=== PATIENT | male | born 1995 | race Caucasian/White ===

== ENCOUNTER 2019-06-09 11:10 | Outpatient (CLI) | payer SELFPAY ==
--- NOTE | 2019-06-09 12:09 | ECG_ITS ---
NAME OF STUDY: TREADMILL STRESS TEST INDICATION: Chest Pain Baseline blood pressure of 129/62 mm Hg, heart rate 73 beats per minute. EKG showed normal sinus rhythm, right axis deviation. Right ventricular conduction delay. The patient exercised for 11 minutes on a standard Anderson protocol. Patient attained a maximum heart rate of 180 beats per minute(90 % of the maximum predicted heart rate) with a blood pressure at the peak exercise of 181/53 mm Hg and. The EKG at the peak exercise revealed sinus tachycardia with no significant ST-T wave changes. Patient did not have any chest pain or any significant arrhythmias with the exercise During the recovery phase, there were no new changes. Blood pressure at the end of the recovery phase was 131/57 mm Hg with a heart rate of 108 beats per minute. CONCLUSION: 1. Normal EKG response to treadmill exercise. 2. No exercise-induced chest pain or cardiac arrhythmia. 3. Good exercise tolerance, attained a maximum of 13.5 METs. Maximum VO2 of 47.3 ml/kg/min. Hester treadmill score of 6, suggestive of low risk. 4. Baseline normal blood pressure with normal response to exercise. Electronically Signed On 06-09-2019 16:51:04 CONSTRUCTION IRONWORKER HELPER by Romina Velasquez M.D. [email or web address]
[2019-06-09 12:23] VITALS: BMI 21.1
[2019-06-09 12:42] VITALS: BP 131/57; PULSE 104
== END 2019-06-09 11:11 | disposition home or self-care (01) ==
LOC: CDL 11:13
PROVIDERS: Visit Provider Nurse Practitioner Family
DX: R07.9 Chest pain, unspecified (principal)
CPT/HCPCS: 93017

== ENCOUNTER 2019-09-28 16:04 | Emergency (ER) | payer SELFPAY ==
[2019-09-28 16:16] VITALS: BP 124/66; PULSE 81; RESP 16; TEMP 36.8; O2SAT 98; BMI 20.3
--- NOTE | 2019-09-28 16:25 | ED_ITS ---
HPI - Wound/Laceration General: Chief Complaint: Wound/Laceration Stated Complaint: left foot lac Time Seen by Provider: 09/28/19 16:21 Source: patient Mode of arrival: ambulatory Limitations: no limitations History of Present Illness: HPI narrative: Patient comes in for injury to the left foot. Patient reports yesterday he was outside walking in the park and slipped cutting his outer sole of his left foot. Patient reports has been ambulating well without any difficulty but it does seem to be sore and he is noticed that he is gaping a little bit. It is been greater than 24 hours since patient's injury. Patient states that his tetanus is up-to-date. Patient reports allergies to amoxicillin and cephalosporins. Review of Systems General: Reports: 10 or more systems reviewed and unremarkable except in HPI and below Skin/Breast: Reports: other (Laceration left foot) PFS ED PFSH: Surgical History H/O oral surgery History of appendectomy Hx of tonsillectomy Social History Smoking and tobacco status: current some day smoker Alcohol intake: current Physical Exam Const: COMMON NORMALS: no acute distress and patient oriented x3 GENERAL APPEARANCE: cooperative HENMT: COMMON NORMALS: normocephalic and Normal external nose present HEAD & SCALP: normal to inspection and normocephalic NOSE: Normal external nose present MOUTH: Normal oral and palatal mucosa present THROAT: posterior oropharynx normal Eye: GENERAL EYE: appearance normal, both eyes and all related structures Neck/C-Spine: COMMON NORMALS: full ROM Chest: COMMONS NORMALS: normal inspection of the chest Resp: COMMON NORMALS: normal respiratory effort EFFORT & INSPECTION: Yes able to speak in complete sentences Cardio: COMMON NORMALS: regular rate and regular rhythm RATE: regular rate RHYTHM: regular rhythm GI: COMMON NORMALS: non-tender Back/Pelvis: COMMON NORMALS: thoracic and lumbar spine normal to inspection Extremity: COMMON NORMALS: normal to inspection Neuro: COMMON NORMALS: patient oriented x3 and moves all extremities Psych: COMMON NORMALS: mental status grossly normal and cooperative Skin: NARRATIVE SKIN EXAM: 3 cm lacerations noted to the sole of the left foot on the outer aspect midfoot. No significant redness or drainage is noted from the wound. No bleeding is noted. Course Vital Signs: Vital signs: Vital Signs Temperature 98.3 F 09/28/19 16:16 Pulse Rate 81 09/28/19 16:16 Respiratory Rate 16 09/28/19 16:16 Blood Pressure 124/66 09/28/19 16:16 Pulse Oximetry 98 09/28/19 16:16 MDM - Wound/Laceration MDM Narrative: Medical decision making narrative: Patient comes in for evaluation of wound to the left foot. On evaluation we note a 3 cm laceration without any sign of foreign body or infection. Vital signs are normal. Differential diagnosis includes laceration, wound infection, foreign body. Reviewed exam with patient not recommending closure of the wound due to the length of time since the injury greater than 24 hours. Patient reports understanding and agrees to plan. Wound was cleaned with Betadine and then dressed with a Telfa pad. Patient will be placed on antibiotic and recommended to monitor for worsening signs and symptoms. Patient's tetanus was already up-to-date. Discharge Plan Discharge Patient Disposition: Home, Self-Care Clinical Impression: Laceration Condition: Stable Prescriptions: New Bactrim DS 800-160 mg tablet 1 tab PO BID 10 Days Qty: 20 RF: 0 Discharge Orders: Discharge Order (Routine); Ordered 09/28/19 Ordered By: Slim Whittaker Discharge Diet: Usual diet Discharge Activity: Increase activity as tolerated Patient Instructions: Laceration (ED) Activity Restrictions/Additional Instructions: Keep wound clean and dry as well as possible. Change dressing daily. Take antibiotics as directed. Monitor wound for worsening symptoms such as swelling or fever. Return to the ER if you notice worsening symptoms or new concerns. Follow-up with primary care in 1 week. Coding Level of Care Code ED Calibration Engineer for Emerson Garsia Exam Comprehensive
[2019-09-28 17:09] VITALS: BP 112/74; PULSE 72; RESP 17; O2SAT 98
== END 2019-09-28 17:11 | disposition home or self-care (01) ==
PROVIDERS: Emergency Provider Nurse Practitioner Family
DX: S91.312A Laceration without foreign body, left foot, initial encounter (principal); W01.0XXA Fall on same level from slipping, tripping and stumbling without subsequent striking against object, initial encounter; F17.210 Nicotine dependence, cigarettes, uncomplicated
CPT/HCPCS: 12345; 99281; 99282

== ENCOUNTER 2019-12-04 00:43 | Emergency (ER) | payer SELFPAY ==
--- NOTE | 2019-12-04 00:47 | ECG_ITS ---
[facility] Test Date: 2019-12-04 Pat Name: Joseph Hood Department: Room: Gender: Male Bowl Sander: : 1995 Requested By: Jesus Ivory Order Number: [id number] Chani MD: Romina Velasquez M.D. Measurements Intervals [place] Rate: 59 P: 5 HI: 129 QRS: 102 QRSD: 96 T: 58 QT: 386 QTc: 383 Interpretive Statements SINUS BRADYCARDIA RIGHT AXIS DEVIATION [QRS AXIS > 100] Compared to ECG 04/06/2017 09:11:05 Sinus rhythm no longer present Sinus arrhythmia no longer present Electronically Signed On 12-04-2019 11:33:07 CDT by Romina Velasquez M.D. [id number]
--- NOTE | 2019-12-04 00:47 | XR_ITS ---
WS: [id number] Chest 2 views, 12/04/2019 Clinical Data: cp Comparison: PA and lateral chest, 09/12/2017. Findings: No nodules, masses or effusions are seen. The heart is normal. The pulmonary vascularity is not increased. No pneumonia or pneumothorax is seen. There is a minimal levoscoliosis of the lower t horacic spine. XR/XR chest 2V* [id number] Impression: Negative chest.
[2019-12-04 00:48] VITALS: BP 102/69; PULSE 68; RESP 17; TEMP 36.6; O2SAT 99; BMI 20.3
--- NOTE | 2019-12-04 00:53 | ED_ITS ---
HPI - General Adult General: Chief complaint: General Medical Stated complaint: CP Time Seen by Provider: 12/04/19 00:52 History of Present Illness: HPI narrative: Patient is a 24-year-old male who comes to the ED with chest pain. Patient says pains been going on for the past 2 weeks. Pain is located on the sternum and he noticed a tender nodule area on the sternum where pain originates from. He says the pain is sporadic and it waxes and wanes. He notices that a majority of the time when he gets this chest pain moving his arms around which then cause that tender area on his chest. He currently rates the chest pain a 3 out of 10 and says he does not want anything for pain. Denies any car accident, trauma or pleuritic rib pain. Denies any shortness of breath, fever, chills, nausea/vomiting no abdominal pain, dysuria, hematuria, constipation and diarrhea. Associated symptoms: Reports chest pain (Tender spot on sternum.); Deny dyspnea, headache(s), nausea, rash, palpitations or vomiting Review of Systems Const: Denies: fever(s), chills or fatigue Eyes: Denies: change in vision or eye discomfort ENMT: Denies: throat pain, odynophagia, nasal discharge or nasal congestion Card: Reports: chest pain (Tender spot on sternum.); Denies: palpitations, edema, swelling of feet/ankles, dyspnea on exertion or orthopnea Resp: Denies: dyspnea, productive cough or non-productive cough GI: Denies: abdominal pain, nausea, vomiting, diarrhea, constipation or hematochezia : Denies: flank pain, difficulty urinating, dysuria or hematuria Musc: Denies: neck pain, back pain or extremity swelling Skin/Breast: Denies: rash or new lesions Neuro: Denies: headache(s), numbness in extremities or weakness in extremities PFSH ED PFSH: Surgical History H/O oral surgery History of appendectomy Hx of tonsillectomy Social History Smoking and tobacco status: current some day smoker Alcohol intake: current Physical Exam Const: COMMON NORMALS: no acute distress, patient oriented x3, healthy appearing and alert GENERAL APPEARANCE: cooperative and comfortable HENMT: COMMON NORMALS: normocephalic HEAD & SCALP: normocephalic MOUTH: Normal oral and palatal mucosa present THROAT: posterior oropharynx normal and uvula midline Eye: COMMON NORMALS: Equal, round and reactive pupils present PUPIL: Yes Equal, round and reactive pupils present Neck/C-Spine: COMMON NORMALS: supple GENERAL: Yes normal visual inspection Chest: CHEST: Yes abnormal inspection of the chest other (Patient did have sma ll palpable nodule on sternum more tender areas. Nodule is firm and feels like it is part of the bone of the sternum.) and Yes tenderness sternum (Tender area on sternum.); no rib xxx Resp: COMMON NORMALS: normal respiratory effort, No retractions, No use of accessory muscles and clear to auscultation bilaterally EFFORT & INSPECTION: Yes able to speak in complete sentences, No tachypneic, No respiratory distress and No labored AUSCULTATION: clear to auscultation bilaterally Cardio: COMMON NORMALS: regular rate, regular rhythm, S1 normal heart sound present, S2 normal heart sound present, No gallops present (Cardio), No clicks present (Cardio), No murmurs present (Cardio) and Peripheral pulses 2+ throughout RATE: regular rate RHYTHM: regular rhythm HEART SOUNDS: S1 normal heart sound present and S2 normal heart sound present PERIPHERAL PULSES: Peripheral pulses 2+ throughout GI: COMMON NORMALS: Normal to inspection, nondistended, normoactive bowel sounds present, Soft to palpation, non-tender and no masses PALPATION: Yes Soft to palpation : COMMON NORMALS: Yes no CVA tenderness BLADDER/KIDNEY EXAM: Yes no CVA tenderness Back/Pelvis: COMMON NORMALS: no CVA tenderness Extremity: COMMON NORMALS: normal to inspection and no pedal edema Neuro: COMMON NORMALS: patient oriented x3 and moves all extremities SENSORIUM/ORIENTATION: Yes alert Skin: COMMON NORMALS: no rashes or lesions noted GENERAL SKIN EXAM: no rashes or lesions noted Course Vital Signs: Vital signs: Vital Signs Temperature 97.8 F 12/04/19 00:48 Pulse Rate 63 12/04/19 01:04 Respiratory Rate 12 12/04/19 01:04 Blood Pressure 104/69 12/04/19 01:04 Pulse Oximetry 98 12/04/19 01:04 MDM - General Adult MDM Narrative: Medical decision making narrative: Patient is a 24-year-old male comes to the ED with chest pain. Patient has tenderness upon palpation of the sternum. He is in no acute distress or pain and is sitting comfortably on the exam bed when I enter the room. Lungs are clear to auscultation bilaterally. Cardiac exam normal. Chest x-ray showed no acute findings. EKG showed sinus bradycardia with no ST segment elevation or depression seen. Patient diagnosed with costochondritis and told to take [id number] ib uprofen and he was also sent home with a prescription for Medrol Dosepak to help with inflammation. Patient told to apply cold pack on sore spot of chest up with symptoms as well. Patient was told to follow-up with PCP in 7 to 10 days for reevaluation. Return to ED precautions given. Patient understood and agreed with plan. Imaging Data^: CXR: Attestation: I personally reviewed and interpreted this imaging study as follows: My impression: Chest x-ray showed no acute findings. EKG Data^: EKG 1: Attestation: I personally reviewed and interpreted this EKG as follows: EKG interpretation date: 12/04/19 Interpretation: Sinus bradycardia, 59 bpm, no ST segment elevation or depression seen. Discharge Plan Discharge Patient Disposition: Home Clinical Impression: Costochondritis Condition: Stable Prescriptions: New Medrol (Suhail) 4 mg tablets,dose pack See Rx Instructions .ROUTE .COMPLEX Qty: 21 RF: 0 Discharge Orders: Discharge Order (Routine); Ordered 12/04/19 Ordered By: Torin Lopez Discharge Diet: Regular Discharge Activity: Resume usual activity Activity Restrictions/Additional Instructions: Follow-up with medical provider as directed in 7-10 days. Take prescribed steroid Dosepak to help with inflammation. Continue taking your previously prescribed ibuprofen to help with pain as well. Apply cold pack on sore spot of chest to help with inflammation. Return to the ER or your medical provider if condition worsens. Please read and understand discharge instructions. If any questions, please ask. Coding Level of Care Code ED Transmission Rebuilder for Emerson Garsia Exam Comprehensive
[2019-12-04 01:04] VITALS: BP 104/69; PULSE 63; RESP 12; O2SAT 98
--- NOTE | 2019-12-04 01:09 | PC.NURSE ---
PATIENT TO CT
--- NOTE | 2019-12-04 01:18 | PC.NURSE ---
PATIENT BACK FROM CT
[2019-12-04 01:31] VITALS: BP 106/52; PULSE 60; RESP 13; O2SAT 98
== END 2019-12-04 01:34 | disposition home or self-care (01) ==
PROVIDERS: Emergency Provider Physician Assistant
DX: M94.0 Chondrocostal junction syndrome [Tietze] (principal); F17.210 Nicotine dependence, cigarettes, uncomplicated
CPT/HCPCS: 12345; 71046; 93005; 99281; 99283

== ENCOUNTER 2019-12-27 23:59 | Emergency (ER) | payer SELFPAY ==
[2019-12-28 00:08] VITALS: BP 99/66; PULSE 68; RESP 16; TEMP 36.3; O2SAT 99; BMI 19.6
--- NOTE | 2019-12-28 00:19 | W.ED.BACK ---
HPI - Back Pain/Injury General: Chief Complaint: Back Pain/Injury Stated Complaint: kidney pain Time Seen by Provider: 12/28/19 00:04 Source: patient Mode of arrival: ambulatory Limitations: no limitations History of Present Illness: HPI Narrative: 24-year-old male states been having left-sided flank pain over the last week sharp in nature. He states the pain is currently a 4 out of 10. Denies any worsening improving factors. He states he is also had very dark urine and has been foul-smelling. Denies any vomiting or diarrhea. Denies any fevers. Denies any history of kidney stones. Associated symptoms: Reports dysuria; Deny abdominal pain, chills, fever(s), nausea or vomiting Review of Systems Const: Denies: fever(s), chills, body aches or change in appetite Eyes: Denies: blurry vision or eye discomfort ENMT: Denies: throat pain or dental pain Card: Denies: chest pain Resp: Denies: dyspnea GI: Denies: abdominal pain, nausea, vomiting or diarrhea : Reports: flank pain and dysuria Musc: Denies: neck pain or back pain Skin/Breast: Denies: rash Neuro: Denies: headache(s) Psych: Denies: depression Jas/Lymph: Denies: easy bruising All/Imm: Denies: urticaria PFSH ED PFSH: Surgical History H/O oral surgery History of appendectomy Hx of tonsillectomy Social History Smoking and tobacco status: current some day smoker Alcohol intake: current Physical Exam Const: COMMON NORMALS: no acute distress, patient oriented x3 and healthy appearing HENMT: COMMON NORMALS: normocephalic and atraumatic HEAD & SCALP: normocephalic and atraumatic Eye: COMMON NORMALS: Equal, round and reactive pupils present and EOMs intact bilaterally PUPIL: Yes Equal, round and reactive pupils present Neck/C-Spine: COMMON NORMALS: full ROM and supple Chest: COMMONS NORMALS: normal inspection of the chest and normal palpation of entire chest wall Resp: COMMON NORMALS: normal respiratory effort, No retractions, No use of accessory muscles and clear to auscultation bilaterally AUSCULTATION: clear to auscultation bilaterally Cardio: COMMON NORMALS: regular rate, regular rhythm and No murmurs present (Cardio) RATE: regular rate RHYTHM: regular rhythm GI: COMMON NORMALS: Normal to inspection, nondistended, normoactive bowel sounds present, Soft to palpation, non-tender and no masses PALPATION: Yes Soft to palpation OTHER: Mild left CVA tenderness Extremity: COMMON NORMALS: normal to inspection and full ROM Neuro: COMMON NORMALS: patient oriented x3, moves all extremities and no focal motor deficits Psych: COMMON NORMALS: mental status grossly normal, Normal thought process present and cooperative THOUGHT PROCESS: Normal thought process present Skin: COMMON NORMALS: no rashes or lesions noted and no wounds GENERAL SKIN EXAM: no rashes or lesions noted Course Vital Signs: Vital signs: Vital Signs Temperature 97.3 F L 12/28/19 00:08 Pulse Rate 68 12/28/19 00:08 Respiratory Rate 16 12/28/19 00:08 Blood Pressure 99/66 12/28/19 00:08 Pulse Oximetry 99 12/28/19 00:08 MDM - Back Pain/Injury MDM Narrative: Medical decision making narrative: Patient presents here with dysuria and likely urinary tract infection. Patient given Rocephin azithromycin here and will prescribe Keflex for home. CT scan shows no signs of Shaq or kidney stone. He is well-appearing here and is stable for discharge and return if worsening. Lab Data: Labs: Lab Results 12/28/19 Range/Units 00:37 Urine Color Yellow (Yellow) Urine Appearance Clear (CLEAR) Urine pH 7 (5-7) Ur Specific Gravit y 1.010 (1.005-1.030) Urine Protein Neg (Negative) Urine Glucose (UA) Norm (Normal) Urine Ketones Negative (Negative) Urine Blood Neg (Negative) Urine Nitrate Negative (Negative) Urine Bilirubin Neg (Negative) Urine Urobilinogen 4 H (Negative) mg/dL Ur Leukocyte Rhonda ase Trace H (Negative) Urine RBC 0-4 H (0-2) /hpf Urine WBC 15-25 H (0-5) /hpf Ur Squamous Epith Cells 5-10 H (0-5) /hpf Amorphous Sediment 4+ /hpf Urine Bacteria 1+ H (NONE) /hpf Imaging Data^: CT Abd/Pel: Radiologist's impression: [address] [place] [address] CT Scan Report Signed Patient: Joseph Hood Unit #: [id number] : 1995 Age/Sex: 24 / M ADM Date: 12/27/19 Loc: ER Room/Bed: Attending Dr: Ordering Provider/Ordering MD: Jesus Ivory MD Date of Service: 12/28/19 Procedure(s): CT kidney stone 8[address]27 Accession Number(s): [id number] Report Number: [id number] PROCEDURE INFORMATION: Exam: CT Abdomen And Pelvis Without Contrast Exam date and time: 12/28/2019 12:31 AM Age: 24 years old Clinical indication: Abdominal pain; Left lower quadrant (llq); Prior surgery; Surgery date: 6+ months; Surgery type: Appy; Patient HX: C/O L flank pain w HX of stones; Additional info: Left flank pain TECHNIQUE: Imaging protocol: Computed tomography of the abdomen and pelvis without contrast. Radiation optimization: All CT scans at this facility use at least one of these dose optimization techniques: automated exposure control; mA and/or kV adjustment per patient size (includes targeted exams where dose is matched to clinical indication); or iterative reconstruction. COMPARISON: No relevant prior studies available. RADIATION DOSE METRICS: Total DLP (mGy-cm): 641.46 FINDINGS: Lungs: The lung bases are clear. Liver: Unremarkable. Gallbladder and bile ducts: The gallbladder is contracted. No visible gallstones by CT. No biliary tree dilation. Pancreas: Unremarkable. Spleen: Unremarkable. Adrenals: Unremarkable. Kidneys and ureters: No hydronephrosis of either kidney. No visible renal or ureteral calculus. No perinephric stranding or fluid. Normal appearance of the kidneys on noncontrast CT does not entirely exclude the diagnosis of acute pyelonephritis. Please correlate with clinical and laboratory evaluation. Stomach and bowel: The stomach appears somewhat distended at the time of scanning. Please correlate clinically. There are no CT findings to strongly suggest diverticulitis. Appendix: The appendix is not identified with certainty, however no pericecal inflammatory changes are seen. Surgical clips adjacent to cecum may indicate prior appendectomy. Intraperitoneal space: No free air, ascites, or bowel distention. Vasculature: No evidence for abdominal aortic aneurysm. Lymph nodes: No retroperitoneal adenopathy. Bladder: Possibly some mild diffuse urinary bladder wall thickening. However, evaluation is limited as the bladder is essentially empty. While nonspecific, this could indicate evidence for cystitis. Please correlate clinically. No visible calculus in the urinary bladder. Reproductive: Essentially unremarkable for age. Bones/joints: No significant acute finding. Soft tissues: No significant acute finding. CT/CT kidney stone [id number] IMPRESSION: 1. No hydronephrosis. No visible renal or ureteral calculus. No perinephric stranding or fluid. See above discussion. 2. Possible mild urinary bladder wall thickening, see above. 3. No diverticulitis. 4. Somewhat distended stomach. 5. No free air or bowel distention. 6. Other findings discussed above. Discharge Plan Discharge Patient Disposition: Home Clinical Impression: Acute cystitis Qualifiers: Hematuria presence: with hematuria Qualified Code(s): N30.01 - Acute cystitis with hematuria Condition: Stable Prescriptions: New Keflex 500 mg capsule 500 mg PO Q6H 7 Days Qty: 28 RF: 0 No Action Medrol (Suhail) 4 mg tablets,dose pack See Rx Instructions .ROUTE .COMPLEX Qty: 21 RF: 0 Discharge Orders: Discharge Order (Routine); Ordered 12/28/19 Ordered By: Jesus Ivory Discharge Diet: Advance as tolerated Discharge Activity: Resume usual activity Patient Instructions: Urinary Tract Infection in Men (ED) Coding Level of Care Code ED Machine Riveter for Emerson Fwd Exam Comprehensive
[2019-12-28] MEDS: ketorolac 30 mg/mL INJ IVP (00:38)
[2019-12-28] MEDS: sodium chloride 0.9% 1,000 ML 999 ML IV (00:39)
[2019-12-28 00:59] LABS: Blood Urine Neg (Negative); Glucose Urine UA Norm (Normal); Ketones Urine Negative (Negative); Protein Urine Neg (Negative); Urine Appearance Clear (CLEAR); Urine Color Yellow (Yellow); pH Urine 7 (5-7)
[2019-12-28 01:00] LABS: Add Urine Microscopic? YES; Bilirubin Urine Neg (Negative); Leukocyte Esterase Urine Trace (Negative); Nitrate Urine Negative (Negative); Urobilinogen Urine 4 mg/dL (Negative)
[2019-12-28 01:04] LABS: Add Urine Culture? No; Amorphous Sediment Urine 4+ /hpf; Bacteria Urine 1+ /hpf; RBC Urine 0-4 /hpf (0-2); WBC Urine 15-25 /hpf (0-5)
[2019-12-28] MEDS: azithromycin 250 mg Tablet 1000 MG PO (02:18)
[2019-12-28] MEDS: cefTRIAXone 1,000 mg SDV 250 MG IM (02:19)
[2019-12-28 02:20] VITALS: BP 123/65; PULSE 76; RESP 18; O2SAT 98
== END 2019-12-28 02:25 | disposition home or self-care (01) ==
PROVIDERS: Emergency Provider Emergency Medicine
DX: N30.01 Acute cystitis with hematuria (principal); F17.210 Nicotine dependence, cigarettes, uncomplicated
CPT/HCPCS: 12345; 74176; 81001; 96372; 96374; 96375; 99282; 99283; J0696; J1885; J7030; Q0144

== ENCOUNTER → 2021-11-23 16:40 | Outpatient (BNVA) | payer SELFPAY | PROVIDERS: Visit Provider Emergency Medicine | DX: R00.2 Palpitations (principal); R07.9 Chest pain, unspecified; Z20.2 Contact with and (suspected) exposure to infections with a predominantly sexual mode of transmission; R55 Syncope and collapse; R06.02 Shortness of breath; J30.2 Other seasonal allergic rhinitis | CPT/HCPCS: 86592; 87255; 87491; 87591 ==

== ENCOUNTER 2024-03-27 00:04 | Emergency (ER) | payer SELFPAY ==
[2024-03-27 00:18] VITALS: BP 96/61; PULSE 84; RESP 18; TEMP 36.8; O2SAT 99
[2024-03-27 01:28] VITALS: BP 115/65; PULSE 87; O2SAT 97
--- NOTE | 2024-03-27 01:28 | XRR_ITS ---
PROCEDURE INFORMATION: Exam: XR Chest Exam date and time: 03/27/2024 1:50 AM Age: 28 years old Clinical indication: Cough and fever; Additional info: Fever, cough TECHNIQUE: Imaging protocol: Radiologic exam of the chest. Views: 1 view. COMPARISON: CR XR chest 2V* [id number] 12/04/2019 1:13 AM FINDINGS: Lungs: Unremarkable. No consolidation. Pleural spaces: Unremarkable. No pleural effusion. No pneumothorax. Heart/Mediastinum: Unremarkable. No cardiomegaly. Bones/joints: Unremarkable. XR/XR chest 1V portable [id number] IMPRESSION: No acute findings.
--- NOTE | 2024-03-27 01:32 | ED_ITS ---
HPI - Nausea/Vomiting/Diarrhea 2 General: Chief complaint: Nausea/Vomiting/Diarrhea Stated complaint: Cough body aches n/v/d migrane Time Seen by Provider: 03/27/24 01:15 History of Present Illness: -year-old man who presents the emergency room with cough, congestion, nausea and vomiting and diarrhea for the past couple of days. 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 Related Data Previous Rx's Medication Instructions Recorded ciprofloxacin HCl 0.3 % eye drops See Rx Instructions ophthalmic 07/28/22 (eye) .COMPLEX #2.5 mL azithromycin 250 mg tablet See Rx Instructions PO .COMPLEX #6 03/27/24 (Zithromax Z-Suhail) tabs dexamethasone 6 mg tablet 6 mg PO DAILY 5 days #5 tabs 03/27/24 ondansetron 4 mg disintegrating 4 mg PO Q8H PRN nausea and 03/27/24 tablet vomiting #10 tabs Allergies Allergy/AdvReac Type Severity Reaction Status Date / Time amoxicillin [From Augmentin] AdvReac Mild rash Verified 07/28/22 13:21 cefixime [From Suprax] AdvReac Mild rash Verified 07/28/22 13:21 clavulanic acid AdvReac Mild rash Verified 07/28/22 13:21 [From Augmentin] Review of Systems 2 Narrative: Constitutional symptoms: Negative except as documented in HPI. Skin symptoms: Negative except as documented in HPI. Eye symptoms: Negative except as documented in HPI. ENMT symptoms: Negative except as documented in HPI. Respiratory symptoms: Negative except as documented in HPI. Cardiovascular symptoms: Negative except as documented in HPI. Gastrointestinal symptoms: Negative except as documented in HPI. Genitourinary symptoms: Negative except as documented in HPI. Musculoskeletal symptoms: Negative except as documented in HPI. Neurologic symptoms: Negative except as documented in HPI. Psychiatric symptoms: Negative except as documented in HPI. Endocrine symptoms: Negative except as documented in HPI. PFSH ED 2 PFSH: Medical History Chest pain Pre-syncope Seasonal allergies Surgical History H/O oral surgery History of appendectomy Hx of tonsillectomy Social History Smoking and tobacco/nicotine status: current every day tobacco/nicotine user Alcohol intake: current Substance/Drug Use: never Physical Exam 2 Narrative: EXAM NARRATIVE: General: Alert, no acute distress. Skin: Warm, dry. Head: Normocephalic, atraumatic. Neck: Supple, trachea midline. Eye: Extraocular movements are intact. Ears, nose, mouth and throat: mucosa moist. Cardiovascular: Regular, Normal peripheral perfusion. Respiratory: Lungs are clear to auscultation, respirations are non-labored, breath sounds are equal, Symmetrical chest wall expansion. Gastrointestinal: Soft, Nontender, Non distended Musculoskeletal: Normal ROM, no deformity. Neurological: Alert and oriented, No focal neurological deficit observed. Psychiatric: Cooperative, appropriate mood & affect. Course 2 Vital Signs: Vital signs: Vital Signs Temperature 98.2 F 03/27/24 00:18 Pulse Rate 82 03/27/24 02:59 Respiratory Rate 18 03/27/24 00:18 Blood Pressure 114/67 03/27/24 02:59 Pulse Oximetry 96 03/27/24 02:59 Oxygen Delivery Me thod Room Air 03/27/24 00:18 MDM - Nausea/Vomiting/Diarrhea Medical Decision Making Chest x-ray: No acute process. No infiltrate. No pneumothorax. This was reviewed and interpreted by myself the emergency room physician. I also reviewed the radiology report. Lab review: No leukocytosis. No anemia. Flu and COVID are negative. Assessment and plan: Upper respiratory infection ?P.o. Zofran and Decadron here. - Discharged home - Discussed plan with patient. Answered any questions. - Evaluation and treatment of this problem were appropriate in the emergency setting. Lab Data 03/27/24 02:07 03/27/24 02:07 Laboratory Results WBC 9.88 10^3/uL (3.29-11.43) 03/27/24 02:07 RBC 4.82 10^6/uL (3.85-5.65) 03/27/24 02:07 Hgb 14.50 g/dL (11.27-16.99) 03/27/24 02:07 Hct 41.7 % (37-53) 03/27/24 02:07 MCV 86.5 fl (82-101) 03/27/24 02:07 MCH 30.1 pg (27-33) 03/27/24 02:07 MCHC 34.8 g/dL (30-55) 03/27/24 02:07 RDW 11.9 % (12.1-15.1) L 03/27/24 02:07 Plt Count 164 10^3/cmm (157-399) 03/27/24 02:07 MPV 11.2 fL (7.4-10.4) H 03/27/24 02:07 Neut % (Auto) 68.1 % 03/27/24 02:07 Lymph % (Auto) 20.1 % 03/27/24 02:07 [place] % (Auto) 8.5 % 03/27/24 02:07 Eos % (Auto) 2.4 % 03/27/24 02:07 Baso % (Auto) 0.7 % 03/27/24 02:07 Neut # (Auto) 6.72 10^3/uL (1.8-7.7) 03/27/24 02:07 Lymph # (Auto) 2.0 10^3/uL (0.8-4.8) 03/27/24 02:07 [place] # (Auto) 0.8 10^3/uL (0.2-0.9) 03/27/24 02:07 Eos # (Auto) 0.2 10^3/uL (0.0-0.8) 03/27/24 02:07 Baso # (Auto) 0.1 10^3/uL (0.0-0.1) 03/27/24 02:07 Nucleated RBC % (auto) 0 % 03/27/24 02:07 Nucleated RBCs # 0.0 /100WBC 03/27/24 02:07 Sodium 138 mmol/L (136-145) 03/27/24 02:07 Potassium 4.0 mmol/L (3.5-5.1) 03/27/24 02:07 Chloride 97 mmol/L (98-107) L 03/27/24 02:07 Carbon Dioxide 29 mmol/L (22-29) 03/27/24 02:07 Anion Gap 16.0 (5-19) 03/27/24 02:07 BUN 16 mg/dL (6-20) 03/27/24 02:07 Creatinine 1.0 mg/dL (0.7-1.2) 03/27/24 02:07 GFR Calculation 90.3 mL/min (90-130) 03/27/24 02:07 Glucose 103 mg/dL (65-115) 03/27/24 02:07 Calculated Osmolality 287 mOsm/kg (285-295) 03/27/24 02:07 Calcium 9.4 mg/dL (8.5-10.5) 03/27/24 02:07 Total Bilirubin 1.0 mg/dL (0.15-1.2) 03/27/24 02:07 AST 17 U/L (0-40) 03/27/24 02:07 ALT 14 U/L (0-41) 03/27/24 02:07 Alkaline Phosphatase 64 U/L (40-130) 03/27/24 02:07 Total Protein 7.0 g/dL (6.6-8.7) 03/27/24 02:07 Albumin 4.6 g/dL (3.5-5.2) 03/27/24 02:07 Globulin 2.4 g/dL (1.3-4.6) 03/27/24 02:07 Coronavirus (PCR) Negative (Negative) 03/27/24 01:26 Influenza A (PCR) Negative (Negative) 03/27/24 01:26 Influenza Type B (PCR) Negative (Negative) 03/27/24 01:26 RSV (PCR) Negative (Negative) 03/27/24 01:26 All radiology interpretation(s) finalized by discharge Discharge Plan Discharge Patient Disposition: Home Clinical Impression: Upper respiratory infection Condition: Stable Prescriptions: New azithromycin [Zithromax Z-Suhail] 250 mg tablet See Rx Instructions .ROUTE .COMPLEX Qty: 6 0RF Rx Instructions: For 250 mg dose pack: take 500 mg today (day 1), then 250 mg for 4 days (days 2-5) dexamethasone 6 mg tablet 6 mg PO DAILY 5 Days Qty: 5 0RF ondansetron 4 mg tablet,disintegrating 4 mg PO Q8H PRN (Reason: nausea and vomiting) Qty: 10 0RF No Action ciprofloxacin HCl 0.3 % drops See Rx Instructions ophthalmic (eye) .COMPLEX Qty: 2.5 0RF Rx Instructions: put 1-2 drps in affected eye(s) every 2hr up to 8 times/day x2days; then 4 times/day x5days ophthalmic (eye) Discharge Orders: Discharge ED (Routine); Ordered 03/27/24 Ordered By: Tawny Thompson Discharge Diet: Usual diet Discharge Activity: Increase activity as tolerated Patient Instructions: Upper Respiratory Infection (ED), Opioid Safety, Pain Management Activity Restrictions/Additional Instructions: Thank you for choosing [facility] for your healthcare needs today. Please realize this is an emergency room and that we are providing you with a medical screening exam and this may not be complete and all inclusive of all the testing and or work up that you may need to determine your ailment or severity of your illness. You have been screened and evaluated and felt safe for discharge. Health conditions do change or evolve sometimes and as such it is important that you follow up with your Primary Doctor to be re checked, 3-5 days is a general good time frame for follow up. You are always welcome to return to the ED for re assessment if your symptoms are worsening or you have new concerns Coding Level of Care Code ED Bike Shop Manager for Emerson Garsia
[2024-03-27 01:43] VITALS: BP 102/66; PULSE 76; O2SAT 95
[2024-03-27 02:04] VITALS: PULSE 79; O2SAT 95
[2024-03-27 02:28] LABS: Covid PCR NEGATIVE (Negative); Influenza A NEGATIVE (Negative); Influenza B NEGATIVE (Negative); Respiratory Syncytial Virus Ce NEGATIVE (Negative)
[2024-03-27 02:31] LABS: Basophils # 0.1 10^3/uL (0.0-0.1); Basophils % 0.7 %; Eosinophils # 0.2 10^3/uL (0.0-0.8); Eosinophils % 2.4 %; Hematocrit 41.7 % (37-53); Lymphocytes % 20.1 %; Mean Corpuscular HGB Conc 34.8 g/dL (30-55); Mean Corpuscular Hemoglobin 30.1 pg (27-33); Mean Corpuscular Volume 86.5 fl (82-101); Mean Platelet Volume 11.2 fL (7.4-10.4); Monocytes # 0.8 10^3/uL (0.2-0.9); Monocytes % 8.5 %; Neutrophils # 6.72 10^3/uL (1.8-7.7); Neutrophils % 68.1 %; Nucleated Red Blood Cells % 0 %; Platelet Count 164 10^3/cmm (157-399); Red Blood Count 4.82 10^6/uL (3.85-5.65); Red Cell Distribution Width 11.9 % (12.1-15.1); White Blood Count 9.88 10^3/uL (3.29-11.43)
[2024-03-27 02:52] LABS: Alanine Aminotransferase 14 U/L (0-41); Albumin Level 4.6 g/dL (3.5-5.2); Alkaline Phosphatase 64 U/L (40-130); Aspartate Amino Transferase 17 U/L (0-40); Blood Urea Nitrogen 16 mg/dL (6-20); Calcium 9.4 mg/dL (8.5-10.5); Carbon Dioxide 29 mmol/L (22-29); Chloride 97 mmol/L (98-107); Creatinine Clr Calc Pharmacy 2.1549; Globulin 2.4 g/dL (1.3-4.6); Glomerular Filtration Rate 90.3 mL/min (90-130); Glucose 103 mg/dL (65-115); Osmolality Calculated 287 mOsm/kg (285-295); Sodium 138 mmol/L (136-145)
[2024-03-27] MEDS: dexamethasone 4 mg Tablet 10 MG PO (02:52)
[2024-03-27] MEDS: ondansetron 4 MG Tablet PO (02:52)
[2024-03-27 02:59] VITALS: BP 114/67; PULSE 82; O2SAT 96
== END 2024-03-27 03:01 | disposition home or self-care (01) ==
PROVIDERS: Emergency Provider Emergency Medicine
DX: J06.9 Acute upper respiratory infection, unspecified (principal); Z11.52 Encounter for screening for COVID-19; Z72.0 Tobacco use
CPT/HCPCS: 0241U; 71045; 80053; 85025; 99284; J8540; Q0162

== ENCOUNTER 2024-10-20 00:44 | Emergency (ER) | payer SELFPAY ==
--- OUTSIDE RECORDS SUMMARY | 2020-10-11 12:20 | XMS_ITS | Continuity of Care Document ---
Author Organization [facility] Address [address] [id number] [address] Phone Care Team Providers Care Blueprinting Machine Operator Name Role Phone Climer FIBERGLASS ROVING WINDERChaparrita Unavailable Unavailable Allergies, Adverse Reactions, Alerts Substance Reaction Status Criticality cefixime Active No Information POTASSIUM CLAVULANATE Active No Inf ormation AMOXICILLIN TRIHYDRATE Active No In formation Medications Medication Instructions Dosage Effective Dates (start - stop) Status Comments ibuprofen 800 mg tablet take 1 tablet by oral route 3 times every day with food 800 MG - Active Procedures Procedure Date OFFICE/OUTPATIENT VISIT, [facility] Infectious Agent DNA Or RNA Infectious Agent DNA Or RNA Specimen Collection SARS-CoV-2 Limited Oral Evaluation Problem Focused Intraoral Periapical First Film Extraction, Erupted Tooth Or Exposed Anne t (Elevati EDR Approval Note Limited oral eval, x-ray & 1st extractio n Results Test Name Date and Time Measure Units Reference Range Abnormal Flag Status Commen ts Panel Description: 35848-7 Final COVID-19 PCR-JV 18:52:57 Negative Negative Final Advance Directives Directive Yes / No Effective Date File Name No Information Encounters Encounter Description Practice Location Reason(s) For Visit Diagnoses Date Provider Providers Copied on Encounter OFFICE/OUTPAT IENT VISIT, [facility], [id number], [id number], [place] tel:[phone] [facility] Body aches, headache, nausea and vomiting (chief complaint) Diarrhea, unspecified type Refugio Cheatham. [address], [place], [id number], [place]. tel:[phone] Referring Provider: Chaparrita Huff, [address] [place], [address]. tel:[phone] [facility], [id number], [id number], [place] tel:[phone] [facility] No Information Refugio Cheatham. [address], [place], [id number], [place]. tel:[phone] Referring Provider: Chaparrita Huff, [address] [place], [address]. tel:[phone] [facility], [id number], [id number], [place] tel:[phone] [facility] Encounter for dental exam and cleaning w/o abnormal findings Marily Clark. [address], [place], [id number], [place]. tel:[phone] Referring Provider: Eduardo Calixto, [address] [place], [address]. tel:[phone] Family History Family Member Type Diagnosis Age At Onset No Information Payers Payer name Insurance type Covered green party ID Authoriza tion(s) No Information Social History Type Description Quantity Date Captured Comments Alcohol Use Details Caffeine Use Details Unknown Tobacco Use Status Occasional cigarette smoker Smoking Status Light tobacco smoker Sex Male Vital Signs Date / Time: Height Weight BMI Pulse Rate Blood Pressure Temperature Respiratory Rate Body Surface Area Head Circumference Head Circ. Percentile Wt./Ho. Percentile BMI percentile Pulse Ox Inhaled Ox 6:17 PM 71.00 in 64.410 kg (142.00 lbs) 19.8 0 kg/m eter (2) 92 /min 112/68 mm[Hg] 98.10 F 14 /min 1.80 meter(2) 97 % 21 % Chief Complaint And Reason For Visit From encounter dated '10/11/2020 17:20'. Body aches, headache, nausea and vomiting (chief complaint). Description: Body aches, headache, nausea and vomiting for a month. States it happened at work and he had to leave work so now needs a COVID test. No fever. No loss of taste or smell. Reason For Referral Reason For Referral No Information Plan Of Treatment Date Type Action Status Goal Tobacco cessation counseling completed History Of Present Illness Encounter Date Complaint History Of Prese nt Illness Body aches, headache , nausea and vomiting Body aches, headache, nausea and vomiting for a month. States it happened at work and he had to leave work so now needs a COVID test. No fever. No loss of taste or smell. Functional Status Date Functional Assessmen t No Information Instructions Date Instruction Additional Infor mark Discussed COVID test ing. PCR sent.He needs to keep hydrated.Make an appt with a PCP to follow up since diarrhea is intermittent for the past month. Related to Diarrhea, unspecified type Lifestyle education Related to D ental Examination Assessments Type Assessment Date assessment Diarrhea, unspecified type Mental Status Date Cognitive Assessment Orientation - [place] ed to time, place, person, situation. Patient Care Teams Name Effective Dates (start - stop) Status Members No Information
--- OUTSIDE RECORDS SUMMARY | 2024-10-20 00:54 | XMS_ITS | Clinical Summary ---
Author Organization [facility] Address [address] [place]: Epic Prelude ADT NICOL SOLIZ [address] Care Team Providers Care Automotive Mechanical Engineer Name Role Phone Non-Staff, Physician Primary Care Provider Unava ilable Allergies Active Allergy Reactions Criticality Noted Date Comments Amoxicillin-Pot Clavulanate Hives High 03/30/20 13 Cefixime Hives High 03/30/2013 Medications No known medications Active Problems Problem Noted Date Diagnosed Date Dental impaction 04/05/2013 Social History Tobacco Use Types Packs/Day Years Used Date Smoking Tobacco: Every Day Cigarettes Passive Smoke Exposure: Current Tobacco Cessation:Ready to Q uit: No; Counseling Given: Yes Alcohol Use Standard Drinks/Week Comments Yes 0 (1 standard drink = 0.6 oz pur e alcohol) Sex and Gender Information Value Date Recorded Sex Assigned at Not on file Legal Sex 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 ENGINEER Gender Identity Not on file Sexual Orientation Not on file Occupation Industry Job Start Date Job End Date [employer] Not on file Not on file Not on file Last Filed Vital Signs Vital Sign Reading Time Taken Comments Blood Pressure 98/56 03/29/2022 9:54 AM BULLDOZER ENGINEER Pulse 77 03/29/2022 9:54 AM BULLDOZER ENGINEER Temperature 35.8 C (96.4 F) 03/29/2022 9:54 AM BULLDOZER ENGINEER Respiratory Rate 18 03/29/2022 9:54 AM BULLDOZER ENGINEER Oxygen Saturation 98% 03/29/2022 9:54 AM BULLDOZER ENGINEER Inhaled Oxygen Concentration - - Weight 70.1 kg (154 lb 9.6 oz) 03/29/2022 9:54 A M BULLDOZER ENGINEER Height 182.9 cm (6') 03/29/2022 9:54 AM BULLDOZER ENGINEER Body Mass Index 20.97 03/29/2022 9:54 AM BULLDOZER ENGINEER Plan of Treatment Health Maintenance Due Date Last Done Comments DTAP/TDAP/TD VACCINES (1 - Tdap) 2016 HEPATITIS B VACCINES (1 of 3 - 19+ 3-dose series) 2016 INFLUENZA VACCINE (#1) 2024 HPV VACCINES Aged Out No longer eligi ble based on patient's age to complete this topic Care Teams Automotive Mechanical Engineer Relationship Specialty Start Date End Date Non-Staff, Physician NO ADDRESS ON FILE PCP - General 08/17/19
[2024-10-20 00:57] VITALS: BP 96/56; PULSE 100; RESP 20; TEMP 36.9; O2SAT 97; BMI 19.3
--- NOTE | 2024-10-20 01:14 | CTR_ITS ---
PROCEDURE INFORMATION: Exam: CT Abdomen And Pelvis Without Contrast Exam date and time: 10/20/2024 1:21 AM Age: 29 years old Clinical indication: Abdominal pain; Other: Lower abdomen and testicular; Prior surgery; Surgery date: 6+ months; Surgery type: Appy; Additional info: Abd/testicular pain TECHNIQUE: Imaging protocol: Computed tomography of the abdomen and pelvis without contrast. Radiation optimization: All CT scans at this facility use at least one of these dose optimization techniques: automated exposure control; mA and/or kV adjustment per patient size (includes targeted exams where dose is matched to clinical indication); or iterative reconstruction. COMPARISON: CT kidney stone [id number] 12/28/2019 12:37 AM RADIATION DOSE METRICS: Total DLP (mGy-cm): 367.8 FINDINGS: Lungs: The lung bases are clear. Liver: Unremarkable. Gallbladder and biliary ducts: The gallbladder is contracted. No visible gallstones by CT. No biliary tree dilation. Pancreas: Unremarkable. Spleen: Unremarkable. Adrenal glands: Unremarkable. Kidneys and ureters: No hydronephrosis of either kidney. No visible renal or ureteral calculus. No perinephric fluid. Noncontrast CT is not very sensitive regarding the diagnosis or exclusion of acute pyelonephritis. Please correlate with clinical and laboratory evaluation. Stomach and bowel: The stomach appears somewhat distended at the time of scanning. Please correlate clinically. No significant bowel distention. There are no CT findings to suggest diverticulitis. Appendix: Reportedly, there has been prior appendectomy. Intraperitoneal space: No free intraperitoneal air, or ascites. Vasculature: No evidence for abdominal aortic aneurysm. Lymph nodes: No retroperitoneal adenopathy. Urinary bladder: No visible calculus in the urinary bladder. The bladder is not well distended, limiting other evaluation. Reproductive: No obvious scrotal/testicular abnormality within limits of CT evaluation. Ultrasound could further evaluate, as clinically directed. Bones/joints: No significant acute finding. Soft tissues: No significant acute finding. CT/CT abdomen pelvis wo con [id number] IMPRESSION: 1. No free air or significant bowel distention. 2. No hydronephrosis of either kidney. No visible renal or ureteral calculus. No perinephric fluid, see above discussion. 3. No evidence for diverticulitis. 4. Prior appendectomy. 5. No obvious scrotal/testicular abnormality within limits of CT evaluation, see above. 6. Other findings discussed above.
[2024-10-20 01:16] LABS: Hematocrit 40.6 % (37-53); Hemoglobin 14.20 g/dL (11.27-16.99); Mean Corpuscular HGB Conc 35.0 g/dL (30-55); Mean Corpuscular Hemoglobin 29.6 pg (27-33); Mean Corpuscular Volume 84.6 fl (82-101); Nucleated Red Blood Cells % 0 %; Platelet Count 157 10^3/cmm (157-399); Red Blood Count 4.80 10^6/uL (3.85-5.65); White Blood Count 7.00 10^3/uL (3.29-11.43)
[2024-10-20 01:33] LABS: Alanine Aminotransferase 11 U/L (0-41); Albumin Level 4.2 g/dL (3.5-5.2); Alkaline Phosphatase 57 U/L (40-130); Anion Gap 14.5 (5-19); Aspartate Amino Transferase 16 U/L (0-40); Blood Urea Nitrogen 11 mg/dL (6-20); Calcium 9.3 mg/dL (8.5-10.5); Carbon Dioxide 29 mmol/L (22-29); Chloride 100 mmol/L (98-107); Creatinine Clr Calc Pharmacy 113.7935; Globulin 2.6 g/dL (1.3-4.6); Glucose 110 mg/dL (65-115); Osmolality Calculated 290 mOsm/kg (285-295); Potassium 3.5 mmol/L (3.5-5.1); Sodium 140 mmol/L (136-145); Total Protein 6.8 g/dL (6.6-8.7)
[2024-10-20 03:34] VITALS: BP 107/58; PULSE 73; O2SAT 98
--- NOTE | 2024-10-20 03:38 | ED_ITS ---
HPI - Abdominal Pain 2 General: Chief Complaint: Abdominal Pain Stated Complaint: ABD and Testical Pain Time Seen by Provider: 10/20/24 03:37 History of Present Illness: 29-year-old man who presents emergency r oom with lower abdominal and testicular pain. This has been off and on for couple months now. Pain was a little worse today so he felt like he needed to be evaluated. No dysuria. No nausea or vomiting. No fever. Related Data Previous Rx's ?Medication ?Instructions ?Recorded ciprofloxacin HCl 0.3 % eye drops See Rx Instructions ophthalmic 07/28/22 (eye) .COMPLEX #2.5 mL azithromycin 250 mg tablet See Rx Instructions PO .COM PLEX #6 03/27/24 (Zithromax Z-Suhail) tabs ondansetron 4 mg disintegrating 4 mg PO Q8H PRN nausea and 03/27/24 tablet vomiting #10 tabs Allergies Allergy/AdvReac Type Severity Reaction Status Date / Time amoxicillin (From Augmentin) AdvReac Mild rash Verified 07/28/22 13:21 cefixime (From Suprax) AdvReac Mild rash Verified 07/28/22 13:21 clavulanic acid (From AdvReac Mild rash Verified 07/28/22 13:21 Augmentin) Review of Systems 2 Narrative: Constitutional symptoms: Negative except as documented in HPI. Skin symptoms: Negative except as documented in HPI. Eye symptoms: Negative except as documented in HPI. ENMT symptoms: Negative except as documented in HPI. Respiratory symptoms: Negative except as documented in HPI. Cardiovascular symptoms: Negative except as documented in HPI. Gastrointestinal symptoms: Negative except as documented in HPI. Genitourinary symptoms: Negative except as documented in HPI. Musculoskeletal symptoms: Negative except as documented in HPI. Neurologic symptoms: Negative except as documented in HPI. Psychiatric symptoms: Negative except as documented in HPI. Endocrine symptoms: Negative except as documented in HPI. PFSH ED 2 PFSH: Medical History (Updated 10/20/24 @ 04:39 by Tawny Thompson MD) Pre-syncope Seasonal allergies Chest pain Surgical History History of appendectomy Hx of tonsillectomy H/O oral surgery Social History Smoking and tobacco/nicotine status: current every day tobacco/nicotine user Alcohol intake: current Substance/Drug Use: never Physical Exam 2 Narrative: EXAM NARRATIVE: General: Alert, no acute distress. Skin: Warm, dry. Head: Normocephalic, atraumatic. Neck: Supple, trachea midline. Eye: Extraocular movements are intact. Ears, nose, mouth and throat: mucosa moist. Cardiovascular: Regular, Normal peripheral perfusion. Respiratory: Lungs are clear to auscultation, respirations are non-labored, breath sounds are equal, Symmetrical chest wall expansion. Gastrointestinal: Soft, Nontender, Non distended Musculoskeletal: Normal ROM, no deformity. Neurological: Alert and oriented, No focal neurological deficit observed. Psychiatric: Cooperative, appropriate mood & affect. Course 2 Vital Signs: Vital signs: Vital Signs Temperature 98.4 F 10/20/24 00:57 Pulse Rate 100 10/20/24 00:57 Respiratory Rate 20 H 10/20/24 00:57 Blood Pressure 96/56 10/20/24 00:57 Pulse Oximetry 97 10/20/24 00:57 MDM - Abdominal Pain Medical Decision Making Medical decision making: Differential diagnosis including but not limited to and based on the above HPI, review of systems and physical exam: In this patient with testicular and abdominal pain with concern for kidney stones, urinary tract infection, testicular torsion etc. orders placed to evaluate differential diagnosis based on the above differential, HPI and physical exam Lab Review: Laboratory results were reviewed and interpreted by myself the emergency room physician. No leukocytosis. No anemia. No renal failure. Urine is clear of infection. CT of the abdomen without contrast: No acute process. No kidney stones. This was reviewed and interpreted by myself the emergency room physician. I also reviewed the radiology report. Ultrasound of the scrotum: Normal testes. This was reviewed and interpreted by myself the emergency room physician. I also reviewed the radiology report. I reviewed the patient's medical record. Reexamination: Patient remained stable. No increased work of breathing. No altered mental status. No focal motor deficits. Assessment and plan: Abdominal and testicular pain - Discharged home - Discussed findings and plan with patient. Answered any questions. - All laboratory values were reviewed and interpreted personally by myself, the ER physician - All imaging was reviewed and interpreted personally by myself, the ER physician. - Evaluation and treatment of this problem were appropriate in the emergency setting Lab Data 10/20/24 01:12 10/20/24 01:12 Labs/Radiology: Radiology Impressions Abdomen/Pelvis CT 10/20/24 01:14 IMPRESSION: 1. No free air or significant bowel distention. 2. No hydronephrosis of either kidney. No visible renal or ureteral calculus. No perinephric fluid, see above discussion. 3. No evidence for diverticulitis. 4. Prior appendectomy. 5. No obvious scrotal/testicular abnormality within limits of CT evaluation, see above. 6. Other findings discussed above. Laboratory Results WBC 7.00 10^3/uL (3.29-11.43) 10/20/24 01:12 RBC 4.80 10^6/uL (3.85-5.65) 10/20/24 01:12 Hgb 14.20 g/dL (11.27-16.99) 10/20/24 01:12 Hct 40.6 % (37-53) 10/20/24 01:12 MCV 84.6 fl (82-101) 10/20/24 01:12 MCH 29.6 pg (27-33) 10/20/24 01:12 MCHC 35.0 g/dL (30-55) 10/20/24 01:12 RDW 12.4 % (12.1-15.1) 10/20/24 01:12 Plt Count 157 10^3/cmm (157-399) 10/20/24 01:12 MPV 13.3 fL (7.4-10.4) H 10/20/24 01:12 Neut % (Auto) 57.6 % 10/20/24 01:12 Lymph % (Auto) 32.6 % 10/20/24 01:12 [place] % (Auto) 6.3 % 10/20/24 01:12 Eos % (Auto) 2.1 % 10/20/24 01:12 Baso % (Auto) 1.1 % 10/20/24 01:12 Neut # (Auto) 4.03 10^3/uL (1.8-7.7) 10/20/24 01:12 Lymph # (Auto) 2.3 10^3/uL (0.8-4.8) 10/20/24 01:12 [place] # (Auto) 0.4 10^3/uL (0.2-0.9) 10/20/24 01:12 Eos # (Auto) 0.2 10^3/uL (0.0-0.8) 10/20/24 01:12 Baso # (Auto) 0.1 10^3/uL (0.0-0.1) 10/20/24 01:12 Nucleated RBC % (auto) 0 % 10/20/24 01:12 Nucleated RBCs # 0.0 /100WBC 10/20/24 01:12 Sodium 140 mmol/L (136-145) 10/20/24 01:12 Potassium 3.5 mmol/L (3.5-5.1) 10/20/24 01:12 Chloride 100 mmol/L (98-107) 10/20/24 01:12 Carbon Dioxide 29 mmol/L (22-29) 10/20/24 01:12 Anion Gap 14.5 (5-19) 10/20/24 01:12 BUN 11 mg/dL (6-20) 10/20/24 01:12 Creatinine 1.0 mg/dL (0.7-1.2) 10/20/24 01:12 GFR Calculation 89.6 mL/min (90-130) L 10/20/24 01:12 Glucose 110 mg/dL (65-115) 10/20/24 01:12 Calculated Osmolality 290 mOsm/kg (285-295) 10/20/24 01:12 Calcium 9.3 mg/dL (8.5-10.5) 10/20/24 01:12 Total Bilirubin 0.8 mg/dL (0.15-1.2) 10/20/24 01:12 AST 16 U/L (0-40) 10/20/24 01:12 ALT 11 U/L (0-41) 10/20/24 01:12 Alkaline Phosphatase 57 U/L (40-130) 10/20/24 01:12 Total Protein 6.8 g/dL (6.6-8.7) 10/20/24 01:12 Albumin 4.2 g/dL (3.5-5.2) 10/20/24 01:12 Globulin 2.6 g/dL (1.3-4.6) 10/20/24 01:12 Urine Color Yellow (Yellow) 10/20/24 03:15 Urine Appearance Clear (CLEAR) 10/20/24 03:15 Urine pH 6.5 (5-7) 10/20/24 03:15 Ur Specific [place] 1.011 (1.005-1.030) 10/20/24 03:15 Urine Protein Negative (Negative) 10/20/24 03:15 Urine Glucose (UA) Negative (Normal) 10/20/24 03:15 Urine Ketones Negative (Negative) 10/20/24 03:15 Urine Blood Negative (Negative) 10/20/24 03:15 Urine Nitrate Negative (Negative) 10/20/24 03:15 Urine Bilirubin Negative (Negative) 10/20/24 03:15 Urine Urobilinogen 1.0 mg/dL (Negative) 10/20/24 03:15 Ur Leukocyte Esterase Negative (Negative) 10/20/24 03:15 Urine RBC 0-2 /hpf (0-2) 10/20/24 03:15 Urine WBC 0-5 /hpf (0-5) 10/20/24 03:15 Ur Squamous Epith Cells 0-5 /hpf (0-5) 10/20/24 03:15 Amorphous Sediment Not Reportable 10/20/24 03:15 Urine Bacteria None seen /hpf (NONE) 10/20/24 03:15 Hyaline Casts 0-4 /lpf H 10/20/24 03:15 All radiology interpretation(s) finalized by discharge Discharge Plan Discharge Patient Disposition: Home Clinical Impression: Abdominal pain, Testicular pain Condition: Stable Prescriptions: No Action ciprofloxacin HCl 0.3 % drops See Rx Instructions ophthalmic (eye) .COMPLEX Qty: 2.5 0RF Rx Instructions: put 1-2 drps in affected eye(s) every 2hr up to 8 times/day x2days; then 4 times/day x5days ophthalmic (eye) azithromycin [Zithromax Z-Suhail] 250 mg tablet See Rx Instructions .ROUTE .COMPLEX Qty: 6 0RF Rx Instructions: For 250 mg dose pack: take 500 mg today (day 1), then 250 mg for 4 days (days 2-5) ondansetron 4 mg tablet,disintegrating 4 mg PO Q8H PRN (Reason: nausea and vomiting) Qty: 10 0RF Discharge Orders: Discharge ED (Routine); Ordered 10/20/24 Ordered By: Tawny Thompson Discharge Diet: Usual diet Discharge Activity: Increase activity as tolerated Patient Instructions: Abdominal Pain (ED), Opioid Safety, Pain Management, Patient Portal & Angela Instructions Activity Restrictions/Additional Instructions: Thank you for choosing [facility] for your healthcare needs today. You have been screened and evaluated and felt safe for discharge. Health conditions do change or evolve sometimes and as such it is important that you follow up with your Primary Doctor to be re checked, 3-5 days is a general good time frame for follow up. You are always welcome to return to the ED for re assessment if your symptoms are worsening or you have new concerns Print Language: Urdu Coding Level of Care Code ED Sealing Machine Operator for Emerson Garsia
[2024-10-20 03:39] LABS: Glucose Urine UA Negative (Normal); Nitrate Urine Negative (Negative); Specific Gravity, Urine 1.011 (1.005-1.030)
--- NOTE | 2024-10-20 03:39 | USR_ITS ---
PROCEDURE INFORMATION: Exam: US Scrotum and US Duplex Artery and Vein, Scrotum, Complete Exam date and time: 10/20/2024 4:08 AM Age: 29 years old Clinical indication: Scrotum pain; Additional info: Testicular pain TECHNIQUE: Imaging protocol: Real-time ultrasound of the scrotum. Real-time duplex ultrasound scan of the arterial and venous flow of the scrotum with B-mode, color Doppler flow and spectral waveform analysis. Complete exam. Duplex exam was performed to evaluate for torsion and other vascular conditions. COMPARISON: CT abdomen pelvis wo con [id number] 10/20/2024 1:21 AM FINDINGS: Right: The right testicle measures 43 x 27 x 32 mm, estimated volume 19.3 cc. No visible intratesticular mass. Duplex Doppler evaluation, with color flow and spectral waveform analysis, demonstrates intratesticular arterial and venous blood flow. The right epididymis is normal in size and appearance. There is no significant right scrotal fluid. Left: The left testicle measures 46 x 25 x 36 mm, estimated volume 21.1 cc. No visible intratesticular mass. Duplex Doppler evaluation, with color flow and spectral waveform analysis, demonstrates intratesticular arterial and venous blood flow. The left epididymis is normal in size and appearance. There is no significant left scrotal fluid. US/US scrotum [id number] IMPRESSION: 1. No evidence for torsion by Doppler ultrasound. 2. No findings to suggest epididymitis. 3. No visible intratesticular mass. 4. Other details discussed above.
[2024-10-20 03:43] LABS: Add Urine Microscopic? YES
[2024-10-20 05:54] VITALS: BP 98/58; PULSE 82; O2SAT 96
== END 2024-10-20 05:00 | disposition home or self-care (01) ==
PROVIDERS: Physician Assistant; Emergency Provider Emergency Medicine
DX: R10.30 Lower abdominal pain, unspecified (principal); N50.819 Testicular pain, unspecified; F17.200 Nicotine dependence, unspecified, uncomplicated
CPT/HCPCS: 36415; 74176; 76870; 80053; 81001; 85025; 99284